=== PATIENT | male | born 1980 | race American Indian/Alaskan Native ===

== ENCOUNTER 2016-12-29 21:39 | Emergency (ER) | payer OTHER ==
[2016-12-29 22:26] LABS: Bilirubin,Urine NEG (Negative); Blood,Urine SM (Negative); Ketones,Urine NEG (Negative); Leukocyte Esterase,Urine NEG (Negative); Mucus,Urine FEW /HPF; Nitrite,Urine NEG (Negative); Urobilinogen,Urine < 2.0 mg/dL (<2.0)
[2016-12-30] MEDS ORDERED: NORCO 5/325 PO ONE (04:01)
[2016-12-30 04:45] LABS: Basophils % (Auto) 0.7 % (0.0-1.8); Eosinophils % (Auto) 4.8 % (0.0-4.3); Hematocrit 40.4 % (35.5-45.6); Hemoglobin 13.2 gm/dl (11.8-15.2); Mean Corpuscular HGB Conc 33 % (32-34); Mean Corpuscular Hemoglobin 27 pg (28-32); Mean Corpuscular Volume 81 fl (84-94); Platelet Count 157 K/mm3 (140-440); Red Blood Count 4.96 M/mm3 (3.65-5.03); White Blood Count 6.9 K/mm3 (4.5-11.0)
[2016-12-30 05:00] LABS: Albumin 3.7 g/dL (3.9-5); Alkaline Phosphatase 69 units/L (35-129); Anion Gap 18 mmol/L; BUN/Creatinine Ratio 19; Bilirubin,Total < 0.20 mg/dL (0.1-1.2); Blood Urea Nitrogen 17 mg/dL (9-20); Carbon Dioxide 24 mmol/L (22-30); Chloride 99.3 mmol/L (98-107); Glucose 254 mg/dL (75-100); Potassium 3.8 mmol/L (3.6-5.0); Sodium 137 mmol/L (137-145); Total Protein 7.4 g/dL (6.3-8.2)
[2016-12-30 05:12] LABS: Alanine Aminotransferase < 5 units/L (7-56)
[2016-12-30] MEDS ORDERED: TORADOL IM ONE (06:32)
[2016-12-30] MEDS ORDERED: DILAUDID IM ONE (06:32)
[2016-12-30] MEDS ORDERED: ZOFRAN ODT PO ONE (06:33)
--- NOTE | 2016-12-30 07:36 | Emergency Department Report ---
ED Abdominal Pain HPI - General Chief Complaint: Abdominal Pain Stated Complaint: ABD PAIN Time Seen by Provider: 12/30/16 06:24 Source: patient Mode of arrival: Ambulatory Limitations: No Limitations - History of Present Illness Initial Comments: 36-year-old male with a past medical history of obesity, insulin-dependent diabetes, hypertension, and neuropathy presents to the hospital a complains of right flank pain 2 weeks. Pain is right lateral flank area, intermittent, aching, worse with palpation and movement. Pain is rated 10/10 intensity. Pain has been intermittent for the past several weeks but acutely worsened last night. Denies associated nausea, vomiting, diarrhea, fever, dysuria, hematuria , or testicular pain. Patient denies acute injury. No complaints of lower extremity weakness or urinary incontinence. Severity scale (0 -10): 10 - Related Data Home Medications Medication Instructions Recorded Confirmed Last Taken Fenofibrate 150 mg PO DAILY 03/04/16 03/04/16 Unknown Gabapentin [Neurontin] 800 mg PO Q8H 03/04/16 03/04/16 Unknown Hydrochlorothiazide [HCTZ] 25 mg PO QDAY 03/04/16 03/04/16 Unknown Insulin Aspart [Novolog Flexpen] 22 unit SQ TID 03/04/16 03/04/16 Unknown Losartan [Cozaar] 25 mg PO QDAY 03/04/16 03/04/16 Unknown Previous Rx's Medication Instructions Recorded Last Taken Type HYDROcodone/APAP 10-325 [Panora 1 each PO Q8HR PRN #15 tablet 03/04/16 Unknown Rx 10/325] Ibuprofen [Motrin] 800 mg PO Q8HR PRN #30 tablet 12/30/16 Unknown Rx oxyCODONE /ACETAMINOPHEN [Percocet 1 tab PO Q6HR PRN #15 tablet 12/30/16 Unknown Rx 5/325] Allergies Allergy/AdvReac Type Severity Reaction Status Date / Time No Known Allergies Allergy Verified 03/04/16 00:14 ED Review of Systems ROS: Stated complaint: ABD PAIN Other details as noted in HPI Comment: All other systems reviewed and negative Other: Constitutional: No fevers chills Eyes: No eye pain visual changes ENT: No ear pain or throat pain Neck: Denies pain Respiratory: Denies cough wheezing shortness of breath Cardiovascular: Denies chest pain, palpitations, syncope GI: As per HPI : Denies dysuria Musculoskeletal: Denies back pain, joint swelling Skin: Denies rash, lesions, erythema Neurologic: Denies headache, numbness, weakness Psychiatric: Denies suicidal ideation, hallucinations ED Past Medical Hx - Past Medical History Previous Medical History?: Yes Hx Hypertension: Yes Hx Diabetes: Yes Additional medical history: neuropathy - Surgical History Past Surgical History?: Yes Additional Surgical History: T&A - Social History Smoking Status: Never Smoker Substance Use Type: None - Medications Home Medications: Home Medications Medication Instructions Recorded Confirmed Last Taken Type Fenofibrate 150 mg PO DAILY 03/04/16 03/04/16 Unknown History Gabapentin [Neurontin] 800 mg PO Q8H 03/04/16 03/04/16 Unknown History HYDROcodone/APAP 10-325 [Panora 1 each PO Q8HR PRN #15 tablet 03/04/16 Unknown Rx 10/325] Hydrochlorothiazide [HCTZ] 25 mg PO QDAY 03/04/16 03/04/16 Unknown History Insulin Aspart [Novolog Flexpen] 22 unit SQ TID 03/04/16 03/04/16 Unknown History Losartan [Cozaar] 25 mg PO QDAY 03/04/16 03/04/16 Unknown History Ibuprofen [Motrin] 800 mg PO Q8HR PRN #30 tablet 12/30/16 Unknown Rx oxyCODONE /ACETAMINOPHEN [Percocet 1 tab PO Q6HR PRN #15 tablet 12/30/16 Unknown Rx 5/325] ED Physical Exam - General Limitations: No Limitations - Other Other exam information: General: No limitations, patient is alert in no acute distress Head exam: Atraumatic, normocephalic Eyes exam: Normal appearance, pupils equal reactive to light, extraocular movements intact ENT: Moist mucous membrane, normal oropharynx Neck exam: Normal inspection, full range of motion, no meningismus nontender Respiratory exam: Clear to auscultation bilateral, no wheezes, rales, crackles Cardiovascular: Normal rate and rhythm, normal heart sounds Abdomen: Soft, nondistended, tenderness at the lower right flank area, with normal bowel sounds, no rebound, or guarding Extremity: Full range of motion normal inspection no deformity Back: Normal Inspection, full range of motion, no tenderness Neurologic: Alert, oriented x3, cranial nerves intact, no motor or sensory deficit Psychiatric: normal affect, normal mood Skin: Warm, dry, intact ED Course Vital Signs 12/29/16 12/30/16 12/30/16 21:49 01:03 03:34 Temperature 97.8 F Pulse Rate 91 H 89 Respiratory 22 20 Rate Blood Pressure 134/85 125/88 116/75 Blood Pressure [Right] O2 Sat by Pulse 98 99 Oximetry 12/30/16 12/30/16 12/30/16 03:44 03:45 04:00 Temperature 97.7 F Pulse Rate 73 Respiratory 16 Rate Blood Pressure 110/72 123/78 Blood Pressure 116/75 [Right] O2 Sat by Pulse 96 97 97 Oximetry 12/30/16 12/30/16 12/30/16 04:06 04:16 04:30 Temperature Pulse Rate Respiratory 16 Rate Blood Pressure 131/79 126/78 Blood Pressure [Right] O2 Sat by Pulse 99 97 Oximetry 12/30/16 12/30/16 12/30/16 04:45 05:00 05:06 Temperature Pulse Rate Respiratory 16 Rate Blood Pressure 135/75 126/76 Blood Pressure [Right] O2 Sat by Pulse 95 97 Oximetry 12/30/16 12/30/16 12/30/16 05:15 05:30 05:45 Temperature Pulse Rate Respiratory Rate Blood Pressure 113/57 111/57 107/58 Blood Pressure [Right] O2 Sat by Pulse 95 97 96 Oximetry 12/30/16 12/30/16 12/30/16 06:00 06:15 07:00 Temperature Pulse Rate Respiratory 16 Rate Blood Pressure 121/62 119/57 Blood Pressure [Right] O2 Sat by Pulse 95 95 Oximetry 12/30/16 07:01 Temperature Pulse Rate Respiratory 16 Rate Blood Pressure Blood Pressure [Right] O2 Sat by Pulse Oximetry - Reevaluation(s) Reevaluation #1: 12/30/16 07:38 Patient received Panora 2 prior to my evaluation without improvement in pain. Additional IM Toradol, Dilaudid, by mouth Zofran ordered. Reevaluation #2: 12/30/16 07:54 Pain improved after additional meds ED Medical Decision Making - Lab Data Result diagrams: 12/30/16 04:14 12/30/16 04:14 Lab Results 12/29/16 12/30/16 12/30/16 Range/Units 22:02 04:14 04:14 WBC 6.9 (4.5-11.0) K/mm3 RBC 4.96 (3.65-5.03) M/mm3 Hgb 13.2 (11.8-15.2) gm/dl Hct 40.4 (35.5-45.6) % MCV 81 L (84-94) fl MCH 27 L (28-32) pg MCHC 33 (32-34) % RDW 15.0 (13.2-15.2) % Plt Count 157 (140-440) K/mm3 Lymph % (Auto) 46.1 H (13.4-35.0) % [place] % (Auto) 10.3 H (0.0-7.3) % Eos % (Auto) 4.8 H (0.0-4.3) % Baso % (Auto) 0.7 (0.0-1.8) % Lymph # 3.2 (1.2-5.4) K/mm3 [place] # 0.7 (0.0-0.8) K/mm3 Eos # 0.3 (0.0-0.4) K/mm3 Baso # 0.0 (0.0-0.1) K/mm3 Seg Neutrophils % 38.1 L (40.0-70.0) % Seg Neutrophils # 2.6 (1.8-7.7) K/mm3 Sodium 137 (137-145) mmol/L Potassium 3.8 (3.6-5.0) mmol/L Chloride 99.3 (98-107) mmol/L Carbon Dioxide 24 (22-30) mmol/L Anion Gap 18 mmol/L BUN 17 (9-20) mg/dL Creatinine 0.9 (0.8-1.5) mg/dL Estimated GFR > 60 ml/min BUN/Creatinine Ratio 19 % Glucose 254 H (75-100) mg/dL Calcium 9.0 (8.4-10.2) mg/dL Total Bilirubin < 0.20 (0.1-1.2) mg/dL AST 18 (5-40) units/L ALT < 5 L (7-56) units/L Alkaline Phosphatase 69 (35-129) units/L Total Protein 7.4 (6.3-8.2) g/dL Albumin 3.7 L (3.9-5) g/dL Albumin/Globulin Ratio 1.0 % Urine Color Straw (Yellow) Urine Turbidity Clear (Clear) Urine pH 5.0 (5.0-7.0) Ur Specific [place] 1.014 (1.003-1.030) Urine Protein 30 mg/dl (Negative) mg/dL Urine Glucose (UA) >=500 (Negative) mg/dL Urine Ketones Neg (Negative) mg/dL Urine Blood Sm (Negative) Urine Nitrite Neg (Negative) Urine Bilirubin Neg (Negative) Urine Urobilinogen < 2.0 (<2.0) mg/dL Ur Leukocyte Esterase Neg (Negative) Urine WBC (Auto) 1.0 (0.0-6.0) /HPF Urine RBC (Auto) 3.0 (0.0-6.0) /HPF U Epithel Cells (Auto) < 1.0 (0-13.0) /HPF Urine Mucus Few /HPF - Radiology Data Radiology results: report reviewed CT abdomen and pelvis noncontrast: No acute process. Fatty infiltration. - Medical Decision Making Patient's pain likely musculoskeletal in origin. Specific area of the right flank muscles and worse a palpation and movement. Patient also associated symptoms, has unremarkable labs, UA, and CT abdomen and pelvis. Pain medication will be prescribed for symptomatic treatment and outpatient follow- up will be encouraged - Differential Diagnosis muscular skeletal pain, renal colic, appendicitis, Critical Care Time: No Critical care attestation.: If time is entered above; I have spent that time in minutes in the direct care of this critically ill patient, excluding procedure time. ED Disposition Clinical Impression: Flank strain, Diabetes Disposition: DC-01 TO HOME OR SELFCARE Is pt being admited?: No Does the pt Need Aspirin: No Condition: Stable Instructions: Muscle Strain (ED), Diabetes Mellitus Type 2 in Adults (ED) Prescriptions: Ibuprofen [Motrin] 800 mg PO Q8HR PRN #30 tablet PRN Reason: Pain oxyCODONE /ACETAMINOPHEN [Percocet 5/325] 1 tab PO Q6HR PRN #15 tablet PRN Reason: Pain Referrals: PRIMARY CARE, [Primary Care Provider] - 3-5 Days Forms: Work/School Release Form(ED) Time of Disposition: 07:56
--- NOTE | 2016-12-30 07:49 | Cat Scan Report ---
CT OF THE ABDOMEN AND PELVIS WITHOUT CONTRAST HISTORY: Right flank pain, lower abdominal pain.. TECHNIQUE: Helical CT without contrast. Sagittal and coronal reformatted images. FINDINGS: The kidneys, ureters and bladder are unremarkable. No focal renal lesion, nephrolithiasis or hydronephrosis is appreciated. There is diffuse decreased attenuation throughout the liver consistent with fatty infiltration. No focal liver mass is appreciated. The spleen is normal size. The biliary system, pancreas and adrenal glands are unremarkable. The bowel loops are normal caliber and wall thickness. Normal appendix. The aorta is normal caliber. No ascites, bulky adenopathy or inflammatory changes. The lung bases are clear. Normal heart size. No suspicious bony lesion or fracture. IMPRESSION: No acute process is appreciated. Fatty infiltration of the liver.
[2016-12-30 08:19] VITALS: BP 135/88
== END 2016-12-30 08:19 | disposition home or self-care (01) ==
LOC: ED 21:39
DX: S39.011A Strain of muscle, fascia and tendon of abdomen, initial encounter (principal); I10 Essential (primary) hypertension; E11.40 Type 2 diabetes mellitus with diabetic neuropathy, unspecified; Z79.4 Long term (current) use of insulin; X58.XXXA Exposure to other specified factors, initial encounter; Y93.89 Activity, other specified; Y92.89 Other specified places as the place of occurrence of the external cause; Y99.8 Other external cause status
CPT/HCPCS: 36415; 74176; 80053; 81001; 85025; 96372; 99284; J1170; J1885; Q0162

== ENCOUNTER 2017-10-20 01:08 | Emergency (ER) | payer OTHER ==
[2017-10-20 01:18] VITALS: BP 121/79
[2017-10-20] MEDS ORDERED: ASPIRIN PO ONE (01:46)
[2017-10-20 02:09] LABS: Basophils # (Auto) 0.1 K/mm3 (0.0-0.1); Basophils % (Auto) 0.9 % (0.0-1.8); Eosinophils # (Auto) 0.4 K/mm3 (0.0-0.4); Hematocrit 42.6 % (35.5-45.6); Hemoglobin 14.4 gm/dl (11.8-15.2); Lymphocytes # (Auto) 3.2 K/mm3 (1.2-5.4); Lymphocytes % (Auto) 38.6 % (13.4-35.0); Mean Corpuscular HGB Conc 34 % (32-34); Mean Corpuscular Hemoglobin 29 pg (28-32); Mean Corpuscular Volume 84 fl (84-94); Monocytes # (Auto) 0.9 K/mm3 (0.0-0.8); Monocytes % (Auto) 10.9 % (0.0-7.3); Platelet Count 159 K/mm3 (140-440); Red Blood Count 5.04 M/mm3 (3.65-5.03); Red Cell Distribution Width 13.8 % (13.2-15.2)
[2017-10-20 02:29] LABS: BUN/Creatinine Ratio 14; Blood Urea Nitrogen 17 mg/dL (9-20); Calcium 9.1 mg/dL (8.4-10.2); Hemolysis Index 21
== END 2017-10-20 02:35 | disposition left against medical advice (07) ==
LOC: ED 01:08
DX: R07.89 Other chest pain (principal); Z53.21 Procedure and treatment not carried out due to patient leaving prior to being seen by health care provider
CPT/HCPCS: 36415; 80048; 84484; 85025; 93005; 93010